=== PATIENT | male | born 1980 | race Hispanic/Latino ===

== ENCOUNTER 2024-07-22 17:11 | Emergency (ER) | payer SELFPAY ==
--- NOTE | 2024-07-22 17:33 | EDPHYS ---
Physician Documentation [facility] Name: Llu Toscano Age: 43 yrs Sex: Male : 1980 Arrival Date: 07/22/2024 Time: 17:11 Bed 18 Private MD: ED Physician Marco White HPI: 07/22 20:20 This 43 yrs old Male presents to ER via EMS with complaints of Chemical Burn. rt 20:20 Patient presents to the ED with a burn to the left wrist from phenol at work, he went rt to the decontamination chair for 30 minutes. Reports a mild ache to the area but denies other acute complaints at this time, symptoms are mild in severity, no other aggravating or alleviating factors.. Historical: - Allergies: 17:24 No Known Allergies; kc6 - PMHx: 17:24 Diabetes mellitus; Hypertensive disorder; kc6 - PSHx: 17:24 None; kc6 - Immunization history:: Adult Immunizations up to date. - Infectious Disease History:: Denies. - Social history:: Smoking status: Patient denies any tobacco usage or history of. - Family history:: not pertinent. ROS: 20:20 Constitutional: Negative for fever, chills, and weight loss, Cardiovascular: Negative rt for chest pain, palpitations, and edema, Respiratory: Negative for shortness of breath, cough, wheezing, and pleuritic chest pain, Abdomen/GI: Negative for abdominal pain, nausea, vomiting, diarrhea, and constipation, 20:20 Skin: Positive for burn, Negative for laceration(s), Exam: 20:20 Constitutional: This is a well developed, well nourished patient who is awake, alert, rt and in no acute distress. Head/Face: Normocephalic, atraumatic. Chest/axilla: Normal chest wall appearance and motion. Nontender with no deformity. No lesions are appreciated. Cardiovascular: Regular rate and rhythm with a normal S1 and S2. No gallops, murmurs, or rubs. Normal PMI, no JVD. No pulse deficits. Respiratory: Lungs have equal breath sounds bilaterally, clear to auscultation and percussion. No rales, rhonchi or wheezes noted. No increased work of breathing, no retractions or nasal flaring. Abdomen/GI: Soft, non-tender, with normal bowel sounds. No distension or tympany. No guarding or rebound. No evidence of tenderness throughout. 20:20 Skin: Faint discoloration to the left wrist, no focal areas of tenderness, no warmth. Vital Signs: 17:22 BP 138 / 68; Pulse 66; Resp 16 S; Temp 98(O); Pulse Ox 100% on R/A; Weight 95.25 kg kc6 (R); Height 5 ft. 10 in. (R); 17:22 Body Mass Index 30.13 (95.25 kg, 177.8 cm) [facility] MDM: 17:27 Medical Screening Exam initiated rt 20:20 Differential diagnosis: Chemical burn, superficial. Data reviewed: vital signs, nurses rt notes. Management of patient was discussed with the following: Poison control recommends no further treatment with regards to the female.. Care significantly affected by the following chronic conditions: Diabetes, Hypertension. Counseling: I had a detailed discussion with the patient and/or guardian regarding the historical points, exam findings, and any diagnostic results supporting the discharge/admit diagnosis, the need for outpatient follow up, to return to the emergency department if symptoms worsen or persist or if there are any questions or concerns that arise at home. Administered Medications: 17:47 Drug: Boostrix Tdap IM 0.5 ml IM once; as a single dose Route: IM; Site: right deltoid; 6 Disposition Summary: 07/22/24 17:32 Discharge Ordered Notes: Location: Home rt Problem: new rt Symptoms: have improved rt Condition: Stable rt Diagnosis - Chemical burn of left wrist rt Followup: rt - With: Private Physician - When: 2 - 3 days - Reason: Discharge Instructions: - Discharge Summary Sheet rt - Chemical Burn, Adult rt Forms: - Work release form eb - Medication Reconciliation Form rt - Antibiotic Education rt - Prescription Opioid Use rt - Patient Portal Instructions rt - Leadership Thank You Letter rt Signatures: Marjorie Huertas RN RN kc6 Marco White MD MD rt
--- NOTE | 2024-07-22 17:33 | ER ---
Nurse's Notes [facility] Name: Lul Toscano Age: 43 yrs Sex: Male : 1980 Arrival Date: 07/22/2024 Time: 17:11 Bed 18 Private MD: Diagnosis: Chemical burn of left wrist Presentation: 07/22 17:22 Chief complaint: EMS states: chemical burn at work from [employer] to the left kc6 hand. pt showered for 30min at work and the burn was cleaned with D-Bailey by EMS. Coronavirus screen: At this time, the client does not indicate any symptoms associated with coronavirus-19. Ebola Screen: No symptoms or risks identified at this time. Initial Sepsis Screen: Does the patient meet any 2 criteria? No. Patient's initial sepsis screen is negative. Does the patient have a suspected source of infection? No. Patient's initial sepsis screen is negative. Risk Assessment: Do you want to hurt yourself or someone else? Patient reports no desire to harm self or others. Onset of symptoms was July 22, 2024. 17:22 Method Of Arrival: EMS: [facility] kc 17:22 Acuity: AMA 3 kc6 Triage Assessment: 17:22 Injury Description: Burn was sustained 1-2 hours ago. Patient sustained first-degree kc6 burn(s) to medial aspect of left hand. Historical: - Allergies: 17:24 No Known Allergies; kc6 - PMHx: 17:24 Diabetes mellitus; Hypertensive disorder; kc6 - PSHx: 17:24 None; kc6 - Immunization history:: Adult Immunizations up to date. - Infectious Disease History:: Denies. - Social history:: Smoking status: Patient denies any tobacco usage or history of. - Family history:: not pertinent. Screenin:25 [facility] ED Fall Risk Assessment (Adult) History of falling in the last 3 months, kc6 including since admission No falls in past 3 months (0 pts) Confusion or Disorientation No (0 pts) Intoxicated or Sedated No (0 pts) Impaired Gait No (0 pts) Mobility Assist Device Used No (0 pt) Altered Elimination No (0 pt) Score/Fall Risk Level 0 - 2 = Low Risk Oriented to surroundings, Maintained a safe environment, Educated pt \\T\\ family on fall prevention, incl call for assistance when getting out of bed. Abuse screen: Denies threats or abuse. Denies injuries from another. Nutritional screening: No deficits noted. Tuberculosis screening: No symptoms or risk factors identified. Assessment: 17:22 General: Appears in no apparent distress. comfortable, well groomed, well developed, kc Behavior is calm, cooperative, appropriate for age. Pain: Complains of pain in medial aspect of left hand Quality of pain is described as dull, throbbing. Neuro: Level of Consciousness is awake, alert, obeys commands, Oriented to person, place, time, situation, Appropriate for age. Cardiovascular: Capillary refill < 3 seconds. Respiratory: Airway is patent Trachea midline Respiratory effort is even, unlabored, Respiratory pattern is regular, symmetrical. GI: No signs and/or symptoms were reported involving the gastrointestinal system. : No signs and/or symptoms were reported regarding the genitourinary system. EENT: No signs and/or symptoms were reported regarding the EENT system. Derm: Skin is healthy with good turgor, Skin is pink, warm \\T\\ dry. Musculoskeletal: No signs and/or symptoms reported regarding the musculoskeletal system. Circulation, motion, and sensation intact. Range of motion: intact in all extremities. 17:29 Reassessment: spoke with Eleazar at [facility] [id number]. he states, "it sounds like [facility] the burn is already pretty well controlled so we can treat it like any other burn and he should be ok." Dr. White made aware. Vital Signs: 17:22 BP 138 / 68; Pulse 66; Resp 16 S; Temp 98(O); Pulse Ox 100% on R/A; Weight 95.25 kg [facility] (R); Height 5 ft. 10 in. (R); 17:22 Body Mass Index 30.13 (95.25 kg, 177.8 cm) [facility] ED Course: 17:21 Patient arrived in ED. [facility] 17:24 Triage completed. [facility] 17:24 Arm band placed on. [facility] 17:24 Patient has correct armband on for positive identification. Bed in low position. Call [facility] light in reach. Side rails up X2. Adult w/ patient. Pulse ox on. NIBP on. Door closed. Noise minimized. Lights dimmed. Pillow given. Verbal reassurance given. 17:25 Marco White MD is Attending Physician. rt 17:25 Patient maintains SpO2 saturation greater than 95% on room air. kc6 17:39 Marjorie Huertas RN is Primary Nurse. kc6 17:49 No provider procedures requiring assistance completed. Patient did not have IV access kc6 during this emergency room visit. Administered Medications: 17:47 Drug: Boostrix Tdap IM 0.5 ml IM once; as a single dose Route: IM; Site: right deltoid; kc6 Medication: 17:49 VIS not applicable for this client. kc6 Outcome: 17:32 Discharge ordered by . rt 17:49 Discharged to home ambulatory, with friend, kc6 17:49 Condition: good 17:49 Discharge instructions given to patient, friend, Instructed on discharge instructions, follow up and referral plans. wound care, Demonstrated understanding of instructions, follow-up care, wound care, 17:49 Patient left the ED. kc6 Signatures: Marjorie Huertas RN RN kc6 Marco White MD MD rt
[2024-07-22] MEDS ORDERED: TDAP (DIPHTH,PERTUSS(ACELL),TET VAC) 0.5 ML VIAL IMVAC ONE (17:43)
[2024-07-22 18:22] VITALS: BP 138/68; TEMP 98; O2SAT 100
== END 2024-07-22 17:49 | disposition home or self-care (01) ==
LOC: ER 17:11
DX: T23.072A Burn of unspecified degree of left wrist, initial encounter (principal)
CPT/HCPCS: 90715; 96372; 99284